=== PATIENT | female | born 1990 | race Caucasian/White ===

== ENCOUNTER 2018-02-01 05:07 | Inpatient (IN) | payer OTHER ==
[2018-02-01 05:25] VITALS: BMI 31.6
[2018-02-01] MEDS ORDERED: Bicitra 30 ML UD PO ONE (05:30)
[2018-02-01] MEDS ORDERED: ceFAZolin 2 GM in Sodium Chloride 0.9% 100 ML IVPB ONE (05:30)
[2018-02-01] MEDS ORDERED: Lactated Ringer's 1,000 ML IV SCH (05:30)
[2018-02-01] MEDS ORDERED: Oxytocin 30 units/LR 500ML 30 U/500 ML BAG IV ONE (05:43)
[2018-02-01] MEDS: Lactated Ringer's 1,000 ML IV SCH ×4 (05:45→17:38)
[2018-02-01] MEDS ORDERED: ceFAZolin IV 2 gm in Dextrose 2 GM/50 ML BAG IVPB ONE (06:00)
[2018-02-01 06:06] LABS: BASO # 0.1 K/uL (0.0-0.2); BASO % 0.5 % (0.0-2.0); EOS # 0.1 K/uL (0.0-0.7); EOS % 1.1 % (0.0-4.0); HEMOGLOBIN 10.9 g/dL (12.0-16.0); LYMPH # 3.5 K/uL (1.0-4.3); MEAN CELL VOLUME 81.1 fl (81.0-99.0); MEAN CORPUSCULAR HEMOGLOBIN 27.1 pg (27.0-31.0); MEAN CORPUSCULAR HGB CONC 33.4 g/dL (33.0-37.0); MONO # 0.9 K/uL (0.0-0.8); MONO % 7.9 % (0.0-10.0); NEUT # 7.3 K/uL (1.8-7.0); NEUT % 61.5 % (50.0-75.0); NRBC % 0.1 % (0.0-0.0); RBC 4.03 Mil/uL (3.80-5.20); RED CELL DISTRIBUTION WIDTH 17.2 % (11.5-14.5); WHITE BLOOD COUNT 11.9 K/uL (4.8-10.8)
[2018-02-01] MEDS ORDERED: ePHEDrine 50 mg/ml Inj ONE (07:39)
[2018-02-01] MEDS ORDERED: Morphine 1 mg/ml preservative-free Inj(Duramorph) ONE (07:39)
[2018-02-01] MEDS ORDERED: Sodium Chloride 0.9% 10 ML IV ONE (07:39)
--- NOTE | 2018-02-01 08:29 | OBADHP ---
Datetime: 02/01/2018 07:59 Admit Comment, IP Provider: 27 y/o F at 39 weeks GA by [address] [place] [address] US on 07/29/17 presencets f or scheduled repeat . Positive FM. Pt reports Hx of anemia. Pt denies vaginal bleeding, CTX or LOF. NKDA PN Clinic: [place]. PN Labs: remarkable for positive GBS. Hgb of 10. OBHx: 1x , 1x spontaneous PMHx: Anemia. PSHx: denied FHx: NC A/P 27 y/o F with IUP at 39 weeks for scheduled repeat . -Admit to unit -Initiate protocol. Case discussed with Dr Rivera, OB workers compensation claims analyst. Yuliet PGY-1 OB Hospitalist Addendum: Pt seen by me. Agree w/ above. 27 yo at 39 wks for repeat c/s, BTL. No c/o. Consents signed. (ES) Extremities - PN: Normal Back - PN: Normal Breast - PN: Normal Lungs - PN: Normal Heart - PN: Normal Thyroid - PN: Normal Neurologic - PN: Normal HEENT - PN: Normal General - PN: Normal FHR - Baseline A Provider: 140 Membranes, Provider: Intact Contraction Comments Provider: Q2-3 IP Hx Assessment: The History has been Reviewed and is Current IP Chief Complaint: Scheduled Section NICHD Variability Prov Fetus A: Moderate 6-25bpm NICHD Accel Fetus A IP Provider: [id number] FHR Category Provider Fetus A: Category I Dilatation, Provider: 0 Effacement, Provider: 0 Station, Provider: high Genitourinary Exam: Normal DTRs - PN: Normal EGA AdmitDate IP: 39.0 IP Adm Impression: Term, intrauterine IP Admit Plan: Admit to unit; Initiate Section protocol
[2018-02-01] MEDS ORDERED: DiphenhydrAMINE 50 mg/ml Inj IVP PRN ×2 (09:39→13:36)
[2018-02-01] MEDS ORDERED: Oxycodone/Acetaminophen 5/325 mg Tab PO PRN (09:39)
--- NOTE | 2018-02-01 10:20 | OBDS ---
DELIVERY PERSONNEL Delivery Doctor: Darius Rivera MD Scrub Nurse: Patsy Rudolph Loan Coordinator: Lily Allison RN Anesthesiologist: Murlai Duron MD Resident: Dr. Horvath MATERNAL INFORMATION Delivery Anesthesia: Spinal Medications in Delivery: Pitocin 30 units Placenta Cultured: No Maternal Complications: None Provider Comments: Pre-opdx: 27 yo at 39 wks fr repeat cesrean section and bilateral tubal l igation Post-op dx: Same Procedure: Repeat section, bilateral tubal ligation, prior scar excision Surgeon: Nicole Plastic Tool Maker: Dr. Safia Guevara Anesthsiologist: Dr. Duron Anesthesia: Spinal Findings: Viable male delivered through clear fluid at 09:20am, Apgars 8 and 8. Nl appeari ng uterus, tubes and ovaries EBL: 800mL LABOR SUMMARY EDC: 02/08/2018 00:00 No. Babies in Womb: 1 Attempted: No Labor Anesthesia: None LABOR INFORMATION Reason for Induction: Not Applicable Oxytocin: N/A Group B Beta Strep: Positive Steroids Given: None Reason Steroids Not Administered: Not Applicable MEMBRANES Membranes Rupture Method: Artificial Amniotic Fluid Color: Clear Amniotic Fluid Amount: Moderate STAGES OF LABOR Stage 3 hrs: 0 Stage 3 min: 1 CSECTION DELIVERY Primary Indication: Repeat Elective Secondary Indication: Repeat Elective CSection Urgency: Elective CSection Incidence: Repeat Labor: No Labor Elective: Elective CSection Incision: Lower Uterine Transverse BABY A INFORMATION Infant Delivery Date/Time: 02/01/2018 09:20 Method of Delivery: Born in Route : No : N/A Forceps: N/A Vacuum Extraction: N/A Shoulder Dystocia : No SHOULDER DYSTOCIA BABY A Infant Delivery Date/Time: 02/01/2018 09:20 PRESENTATION/POSITION BABY A Presentation: Cephalic Cephalic Presentation: Vertex Breech Presentation: N/A PLACENTA INFORMATION BABY A Placenta Delivery Time : 02/01/2018 09:21 Placenta Method of Delivery: Spontaneous Placenta Status: Delivered SCORES BABY A Heart Rate 1 min: >100 bpm Resp Effort 1 min: Good Cry Reflex Irritability 1 min: Cough or Sneeze or Pulls Away Muscle Tone 1 min: Some Flexion of Extremities Color 1 min: Body Mccammon, Extremities Blue Resuscitation Effort 1 min: Tactile Stimulation; Oxygen SCORE 1 MIN: 8 Heart Rate 5 min: >100 bpm Resp Effort 5 min: Good Cry Reflex Irritability 5 min: Cough or Sneeze or Pulls Away Muscle Tone 5 min: Some Flexion of Extremities Color 5 min: Body Mccammon, Extremities Blue Resuscitation Effort 5 min: Tactile Stimulation; Oxygen SCORE 5 MIN: 8 INFORMATION BABY A Gestational Age at Delivery: 39.0 Gestational Status: Term Outcome : Liveborn Infant Condition : Stable Infant Sex: Male IDENTIFICATION/MEDS BABY A ID Band Number: [id number] ID Band Location: Left Leg; Left Arm WEIGHT/LENGTH BABY A Birthweight (gms): 3500 Weight (lb): 7 Weight (oz): 11 CORD INFORMATION BABY A No. Cord Vessels: 3 Nuchal Cord : N/A Cord Blood Taken: N/A Suction: Mouth; Nose ASSESSMENT BABY A Infant Complications: None Physical Findings at Delivery: Within Normal Limits Respirations: Intercostal Retractions Keyboard Operator/ALS Called : No Infant Care By: Gayle Perkins/Dr. Hanks Transferred To: Nursery
--- NOTE | 2018-02-01 12:21 | OP ---
PROCEDURE DATE: 02/01/2018 PREOPERATIVE DIAGNOSIS: This is a 27-year-old , G3, P1-0-1-1 at 39 weeks for a repeat section and bilateral tubal ligation. POSTOPERATIVE DIAGNOSIS: This is a 27-year-old , G3, P1-0-1-1 at 39 weeks for a repeat section and bilateral tubal ligation. PROCEDURE: Repeat low-transverse section, bilateral tubal ligation, and scar excision. SURGEON: Dr. Kala Rivera. SULFIDE HEAD OPERATOR: Dr. Safia Guevara. Dr. Guevara was the offset press assistant and participated in the surgery for the entire duration. She helped create exposure. She also helped maintain hemostasis, operated throughout the case on the side of the patient that was across from her, and assisted in the delivery of the infant by applying fundal pressure. This case could not have been completed without her assistance. ANESTHESIOLOGIST: Dr. Duron. ANESTHESIA: Spinal. FINDINGS: Viable male delivered through clear fluid at 09:20 a.m. with a left foot cord. Apgars were 8 and 8 at one and five minutes respectively. The weight was 3500 grams or 7 pounds 11 ounces. Normal-appearing uterus, tubes and ovaries. SPECIMEN: Right and left tubal segments. ESTIMATED BLOOD LOSS: 800 mL. COMPLICATIONS: None. DESCRIPTION OF PROCEDURE: The patient was taken operating room where spinal anesthesia was placed. She was prepped and draped in the normal sterile fashion in the dorsal supine position with a leftward tilt. A Quan was placed in the bladder. A time-out had been done. The spinal was tested and found to be adequate. Initially, the prior scar of the first section was cut out with a scalpel. The skin was then excised with the Bovie as it was held up with Allis clamps. The incision was then carried through to the underlying layer of fascia with the Bovie. The fascia was incised in the midline and the incision was extended laterally with the Bovie. The inferior aspect of the fascial incision was then grasped with Jason clamps, elevated and the underlying rectus muscles were dissected off bluntly and with the Bovie. Attention was then turned to the superior aspect of this incision, which in a similar fashion was grasped, tented up with the Jason clamps, and the rectus muscles dissected off bluntly and with the Bovie. The rectus muscles were then in the midline. The peritoneum was identified, tented up and entered sharply with the Metzenbaum scissors. The peritoneal incision was then extended superiorly and inferiorly with good visualization of the bladder. The bladder blade was then inserted, and the vesicouterine peritoneum was identified, grasped with the pickups and entered sharply with the Metzenbaum scissors. This incision was then extended laterally and the bladder flap was created digitally. The bladder blade was then reinserted and the lower uterine segment was incised in transverse fashion with the scalpel. The uterine incision was then extended digitally. The bladder blade was removed and the 's head was delivered atraumatically. The nose and mouth were suctioned with bulb suction. The cord was clamped and cut. The infant was handed off to the awaiting inventory controller. Cord blood was collected. The placenta was then delivered as the uterus was massaged. The uterus was exteriorized and cleared of all clots and debris with a dry sponge curettage. The uterine incision was then repaired with 0 Vicryl in a running locked fashion. Attention was then turned to the right tube. The [place] clamp was then used to grasp the tube approximately 4 cm from the cornual region, 3 cm segment of tube was then ligated using plain gut and excised. Good hemostasis was noted. Attention was then turned to the left tube, which in a similar fashion was ligated and cut. Initially, it was noticed that the tie had come loose and the tube was bleeding. The 2 areas that were bleeding were clamped with hemostat. The proximal portion of the tube, the bleeding was controlled with a stick-tie and the distal portion of the tube that was bleeding was controlled with free tie of 2-0 Vicryl, 2-0 Vicryl was used for bleeding. Good hemostasis was noted. The abdomen was then irrigated and the uterus was returned back to the abdomen. The uterine incision was re-examined and a single interrupted stitch of 0-Vicryl was placed on the left side of the incision for hemostasis. The gutters were cleared of all clots and the tubes were re-examined and found to be hemostatic. The peritoneum was then closed with a 0 chromic. The pyramidalis muscle was then reapproximated using 2-0 chromic with 2 interrupted stitches of 2-0 chromic. The fascia was reapproximated with 0 Vicryl in a running fashion. Subcutaneous fat was closed with a 2-0 plain gut running stitch. The subcutaneous fat had been irrigated. The bleeders were controlled with the Bovie. The space of the fat was then closed with running stitch 2-0 plain gut. The skin was then closed with amanda. The patient tolerated the procedure well. Sponge, lap and needle counts were correct. A 2 g of Ancef were given prior to the procedure. The patient was taken to recovery room in stable condition. Magnolia Rivera MD MTDD
[2018-02-02 05:46] LABS: HEMOGLOBIN 7.5 g/dL (12.0-16.0); MEAN CELL VOLUME 82.3 fl (81.0-99.0); MEAN CORPUSCULAR HEMOGLOBIN 27.1 pg (27.0-31.0); MEAN CORPUSCULAR HGB CONC 32.9 g/dL (33.0-37.0); RBC 2.77 Mil/uL (3.80-5.20); RED CELL DISTRIBUTION WIDTH 17.3 % (11.5-14.5); WHITE BLOOD COUNT 11.2 K/uL (4.8-10.8)
[2018-02-02] MEDS: Oxycodone/Acetaminophen 5/325 mg Tab PO PRN (07:57)
--- NOTE | 2018-02-02 11:42 | OBPPN ---
Datetime: 02/02/2018 06:34 PP Pain Prov: Within normal limits PP Nausea Prov: Denies PP Flatus Prov: No PP BM Prov: No PP Heart Prov: Normal PP Lungs Prov: Normal PP Abdomen/Uterus Prov: Normal PP CVA Tenderness Prov: Normal PP Extremities Prov: Normal PP C/S Incision Prov: Normal PP Impression Prov: Normal progression PP Plan Prov: Continue present management PP Progress Note Prov: POD 1 27 y/o now s/p repeat on POD1 seen and examined at bedside this morning. Pt r eports moderate pain at the site and pain is controlled with pain medications. Pt is tolera ting PO intake. Pt denies passing gas per rectum and no BM yet. OOB/ambulating well without dizziness . Denies chest pain, dyspnea, headache, dizziness or calf pain. Mother does not desire circumcision f or the baby. Physical Exam: General: A_O, resting comfortably in bed, NAD HEENT: moist oral mucosa. Lungs: CTA B/L, no wheezing, rhonchi or rales CVS: RRR, normal S1, S2 ABD: ND, +BS; Incision: dressing removed this morning. Wound looks clean, dry and intact. Barnard intact. No ove rlying erythema, swelling or dehiscence noted. EXT: no edema, negative Rich's sign, calves nontender Neuro/psych: AAOX3. Assessment: 27 y/o now s/p repeat doing well on POD#1 Plan: Advance to regular diet as tolerated. Discontinue Quan SCD for DVT prophylaxis Percocet and Ibuprofen for pain management Senokot for constipation Encourage and ambulation. [place], PGY-1 Case d/w on-call OB hospitalist OB Hospitalist note. Pt seen on ronds this morning. Agree with PGY1 note MAHNDO H/H7/22 - anemia asymptomatoc Vital Signs Provider PP: Reviewed
[2018-02-02] MEDS: Lactated Ringer's 1,000 ML IV SCH (14:11)
[2018-02-02] MEDS: Simethicone 80 mg Chewtab PO PRN (18:59)
[2018-02-03] MEDS: Oxycodone/Acetaminophen 5/325 mg Tab PO PRN ×3 (00:19→18:17)
[2018-02-03 06:27] LABS: HEMOGLOBIN 7.3 g/dL (12.0-16.0); MEAN CELL VOLUME 82.1 fl (81.0-99.0); MEAN CORPUSCULAR HEMOGLOBIN 27.3 pg (27.0-31.0); MEAN CORPUSCULAR HGB CONC 33.3 g/dL (33.0-37.0); RBC 2.68 Mil/uL (3.80-5.20); WHITE BLOOD COUNT 13.4 K/uL (4.8-10.8)
[2018-02-03] MEDS: Simethicone 80 mg Chewtab PO PRN ×2 (08:25→18:21)
--- NOTE | 2018-02-03 12:08 | OBPPN ---
Datetime: 02/03/2018 06:24 PP Pain Prov: Within normal limits PP Nausea Prov: Denies PP Flatus Prov: Yes PP BM Prov: No PP Heart Prov: Normal PP Lungs Prov: Normal PP Abdomen/Uterus Prov: Normal PP Extremities Prov: Normal PP C/S Incision Prov: Normal PP Impression Prov: Normal progression PP Plan Prov: Continue present management PP Progress Note Prov: POD 2 27 y/o now s/p repeat on POD #2 seen and examined at bedside this morning. Pt reports moderate pain at the site and pain is controlled with pain medications. Pt is tole rating PO intake. Pt reprots passing gas per rectum and no BM yet. OOB/ambulating well without dizzi ness. Denies chest pain, palpitation, dyspnea, headache, dizziness or calf pain. Physical Exam: General: A_O, resting comfortably in bed, NAD HEENT: moist oral mucosa. Lungs: CTA B/L, no wheezing, rhonchi or rales CVS: RRR, normal S1, S2 ABD: ND, +BS; Incision: Incision clean, dry and intact. No induration, redness or fluctuation. Andrea intact, n o dehiscence EXT: no edema, negative Rich's sign, calves nontender Neuro/psych: AAOX3. Assessment: 27 y/o now s/p repeat doing well on POD#2 Asymptomatic anemia Plan: Regular diet SCD for DVT prophylaxis Percocet and Ibuprofen for pain management Senokot for constipation Feosol 325 mg TID Encourage and ambulation. Anticipate discharge tomorrow [place], PGY-1 Case d/w on-call OB hospitalist The patient was seen with the resident I agree with the note Vital Signs Provider PP: Reviewed
[2018-02-03] MEDS ORDERED: Oxycodone/Acetaminophen 5/325 mg Tab PO PRN (18:38)
[2018-02-04 22:08] VITALS: BP 115/71; PULSE 89; RESP 20; TEMP 97.9; O2SAT 98
== END 2018-02-04 13:45 | disposition home or self-care (01) | DRG 371 ==
LOC: H.EROB2 05:07 → H.L&D 05:31 → H.OB/GYN 13:15
PROVIDERS: ADMIT Obstetrics & Gynecology; ATTEND Obstetrics & Gynecology
PROC: 10D00Z1 Extraction of Products of Conception, Low, Open Approach (ICD-10-PCS; principal; 2018-02-01)
PROC: 0UB70ZZ Excision of Bilateral Fallopian Tubes, Open Approach (ICD-10-PCS; 2018-02-01)
DX: O34.211 Maternal care for low transverse scar from previous cesarean delivery (principal); O99.824 Streptococcus B carrier state complicating childbirth; K59.00 Constipation, unspecified; Z37.0 Single live birth; Z3A.39 39 weeks gestation of pregnancy; Z30.2 Encounter for sterilization

== ENCOUNTER 2018-02-06 22:09 | Emergency (ER) | payer OTHER ==
[2018-02-06 22:09] VITALS: BMI 31.6
[2018-02-06 22:23] VITALS: RESP 18; O2SAT 99
--- NOTE | 2018-02-07 00:39 | US ---
EXAM: US Duplex Bilateral Lower Extremity Veins CLINICAL HISTORY: 27 years old, female; Signs and symptoms; Other: Swollen ankles; Patient HX: 02/01/18; Additional info: Ankle swelling, R/O dvt TECHNIQUE: Real-time ultrasound scan of the veins of the bilateral lower extremities with color Doppler flow, spectral waveform analysis and compression. COMPARISON: No relevant prior studies available. FINDINGS: Right deep veins: Normal color and spectral Doppler flow. Normal compressibility. No deep vein thrombosis from common femoral to popliteal vein. Right superficial veins: Unremarkable. Left deep veins: Normal color and spectral Doppler flow. Normal compressibility. No deep vein thrombosis from common femoral to popliteal vein. Left superficial veins: Unremarkable. Soft tissues: No popliteal cyst. IMPRESSION: 1. No evidence of DVT within lower extremities.
--- NOTE | 2018-02-07 01:56 | ED PDOC ---
HPI: Female Pain Time Seen by Provider: 02/06/18 22:53 Chief Complaint (Nursing): Abnormal Skin Integrity Chief Complaint (Provider): Opening History Per: Patient Onset/Duration Of Symptoms: Days Current Symptoms Are (Timing): Still Present Associated Symptoms: denies: Fever, Nausea, Vomiting, Diarrhea, Urinary Symptoms Additional Complaint(s): Judie Carter is a 27 year old female with no past medical history, who is presenting to the ER with concerns that a portion of her has opened. Patient had a 6 days ago, and was hospitalized 4 days ago, where the amanda were removed and steri strips were applied. She was discharged home at the time. She also complains of swelling to her ankles and feet which she noticed today. Patient denies any associated trauma or injury. When asked about her OBGYN, she was unable to recall his/her name. Patient currently denies any abdominal pain, fever, nausea, vomiting, diarrhea, or urinary symptoms. She offers no other medical complaints at this time. PMD: non-[facility] Provider Past Medical History Reviewed: Historical Data, Nursing Documentation, Vital Signs Vital Signs: Last Vital Signs Temp 98.1 F 02/06/18 22:17 Pulse 106 H 02/06/18 22:17 Resp 18 02/06/18 22:17 BP 130/82 02/06/18 22:17 Pulse Ox 99 02/06/18 22:17 - Medical History PMH: No Chronic Diseases Denies: Depression, Diabetes, HTN - Surgical History Surgical History: - Family History Family History: States: Unknown Family Hx - Immunization History Hx Tetanus Toxoid Vaccination: No Hx Influenza Vaccination: No Hx Pneumococcal Vaccination: No - Home Medications Home Medications: Ambulatory Orders Medication Instructions Recorded Ascorbic Acid [Vitamin C] 500 mg PO BID #60 capsule 02/04/18 Docusate [Colace] 100 mg PO QPM PRN #30 cap 02/04/18 Ferrous Sulfate [Feosol] 325 mg PO TID #90 tab 02/04/18 Ibuprofen [Motrin Tab] 600 mg PO Q6 PRN #30 tab 02/04/18 oxyCODONE/Acetaminophen [Percocet 1 tab PO Q6 PRN #15 tab 02/04/18 5/325 mg Tab] - Allergies Allergies/Adverse Reactions: Allergies Allergy/AdvReac Type Severity Reaction Status Date / Time No Known Allergies Allergy Verified 03/17/17 11:18 Review of Systems ROS Statement: Except As Marked, All Systems Reviewed And Found Negative Constitutional: Negative for: Fever Gastrointestinal: Negative for: Nausea, Vomiting, Abdominal Pain, Diarrhea Genitourinary Female: Negative for: Other (urinary symptoms) Musculoskeletal: Positive for: Other (leg and ankle swelling) Physical Exam - Reviewed Nursing Documentation Reviewed: Yes Vital Signs Reviewed: Yes - Physical Exam Comments: GENERAL APPEARANCE: Patient is awake, alert, oriented x 3, in no acute distress SKIN: Warm, dry; (-) cyanosis. EYES: (-) conjunctival pallor, (-) scleral icterus. ENMT: Mucous membranes moist. NECK: (-) tenderness, (-) stiffness, (-) lymphadenopathy. CHEST AND RESPIRATORY: (-) rales, (-) rhonchi, (-) wheezes; breath sounds equal bilaterally. HEART AND CARDIOVASCULAR: (-) irregularity; (-) murmur, (-) gallop. ABDOMEN AND GI: (-) distention. Bowel sounds active; (-) tenderness. (-) guarding, (-) rebound, (-) palpable masses, (-) CVA tenderness. (+) Healing suprapubic area, noted steri strips. (+) 1.5 cm dehiscence right side of abdomen , no discharge. EXTREMITIES: (-) deformity, (+) mild edema to ankles and feet, (+) distal pulses. (+) Normal ROM. (+) Normal sensation. NEURO AND PSYCH: Mental status as above; (-) focal findings. - ECG O2 Sat by Pulse Oximetry: 99 (RA) Pulse Ox Interpretation: Normal Medical Decision Making Medical Decision Making: Patient advised that her site is healing well otherwise and to f/u with her radiological equipment specialist. Patient's bp is wnl. US doppler b/l LE ordered. US dopplers (-) for DVT. On re-evaluation, patient is laying comfortably in no acute distress. Reports no CP, dizziness, headache or abdominal pain. Diagnostic results d/w the patient in great detail. Based on history, exam and diagnostic results, plan will be for outpatient follow up. Patient instructed to follow-up with her radiological equipment specialist in 1-2 days without fail. Return to the emergency room at any time for any new or worsening symptoms. Patient states she fully agrees with and understands discharge instructions. States that she agrees with the plan and disposition. Verbalized and repeated discharge instructions and plan. I have given the patient opportunity to ask any additional questions. Disposition - Clinical Impression Clinical Impression: Visit for wound check, Ankle swelling - Patient ED Disposition Is Patient to be Admitted: No Counseled Patient/Family Regarding: Studies Performed, Diagnosis, Need For Followup - Disposition Disposition: Routine/Home Disposition Time: 01:30 Condition: STABLE Additional Instructions: Thank you for letting us take care of you today. You were treated for wound check, s/p , b/l ankle/foot edema. The emergency medical care you received today was directed at your acute symptoms. Return to the Emergency Department if your symptoms worsen, do not improve, or if you have any other problems. Please contact your doctor in 2 days for re-evaluation and follow up. Bring any paperwork you were given at discharge with you along with any medications you are taking to your follow up visit. Our treatment cannot replace ongoing medical care by a primary care provider (PCP) outside of the emergency department. Thank you for allowing the [facility] team to be part of your care today. Instructions: Wound Care (DC), Swelling Forms: [employer] (Turkmen) Print Language: DIVEHI - PA / BLOW MOLDING MACHINE TENDER / Resident Statement MD/DO has reviewed & agrees with the documentation as recorded.
[2018-02-07 03:37] VITALS: BP 130/74; PULSE 787; TEMP 99.2
== END 2018-02-07 03:37 | disposition home or self-care (01) ==
LOC: H.ER 22:09
DX: Z48.00 Encounter for change or removal of nonsurgical wound dressing (principal); R60.0 Localized edema